=== PATIENT | male | born 1985 | race Two or more races ===

== ENCOUNTER 2022-11-09 11:10 | Emergency (ER) | payer OTHER ==
[~2022-11-09] VITALS: Ht 170.2 cm; Wt 129.3 kg
[2022-11-09] MEDS ORDERED: TDAP [DIPH/PERTUSSIS/TET] 0.5 ML VIAL IM ONE ×2 (12:05→12:30)
[2022-11-09 12:32] VITALS: BP 131/64; TEMP 98.3; O2SAT 100
== END 2022-11-09 12:32 | disposition home or self-care (01) ==
LOC: ER 11:15
DX: S61.216A Laceration without foreign body of right little finger without damage to nail, initial encounter (principal); Z60.2 Problems related to living alone; W26.8XXA Contact with other sharp object(s), not elsewhere classified, initial encounter; Y93.89 Activity, other specified; Y92.89 Other specified places as the place of occurrence of the external cause; Y99.8 Other external cause status
CPT/HCPCS: 90715